=== PATIENT | female | born 1980 | race Caucasian/White ===

== ENCOUNTER 2019-10-13 22:52 | Emergency (ER) | payer MEDICAID, OTHER ==
--- NOTE | 2019-10-14 02:08 | EDM.PDOCBH ---
ED HPI GENERAL MEDICAL PROBLEM - General Chief Complaint: Behavioral/Psych Stated Complaint: MENTAL HEALTH CHECK Time Seen by Provider: 10/14/19 01:36 Source of Information: Reports: Patient History Limitations: Reports: Altered Mental Status - History of Present Illness INITIAL COMMENTS - FREE TEXT/NARRATIVE: Mrs. Enrique is a 39-year-old woman who is brought to the ED by the [place] police. As best we can piece together, the patient was just released from halfway, and wanted to be brought to the ED for a "mental health check". Obtaining a history from the patient is very difficult, because she does not answer any questions directly. When asked how long she was in halfway, she responded "Not a little boy". Her speech patterns are tangential. She often seems fixated on answering the wrong question, for example, the patient indicated that she takes CBD oil. When I inquired when the last time was that she took CBD oil, her answers were repeatedly descriptive of where she took CBD oil, not when. When I asked her if she had a place to live, a home, she responded "My apartment is [address] ". I don't know if that means that her apartment number is 18, or if she believes that her apartment is 18 years old. And even that is presuming that the patient has an apartment; she may be homeless. Ultimately, I have virtually no confidence in any of the information that the patient provided. Since the patient has never been to this ED previously, we have no old charts to compare, therefore all of the information contained within this chart should be viewed with some suspicion. The patient indicated that she has a history of both PTSD and bipolar affective disorder. She stated that she takes lithium 3 times a day, with her most recent dose after she was released from halfway today. She indicates that the lithium was actually prescribed while she was in halfway. She also indicates that she takes CBD oil, with her most recent dose prior to her incarceration, however, at this time, I do not know when that was. At no time did the patient suggest that she was feeling either suicidal or homicidal. Here in the ED, the patient is found to be hemodynamically stable and afebrile. She appears to be in no physical distress. - Related Data Allergies Allergy/AdvReac Type Severity Reaction Status Date / Time Unable to Assess Allergy Unverified 10/13/19 23:11 Home Meds: Home Meds . [Unable to Verify Home Med List] 10/13/19 [History] Past Medical History Musculoskeletal History: Reports: Fracture (left ankle) Psychiatric History: Reports: Addiction, Bipolar, PTSD - Past Surgical History Female Surgical History: Reports: Tubal Ligation Social & Family History - Tobacco Use Smoking Status *Q: Current Some Day Smoker - Caffeine Use Caffeine Use: Reports: Coffee - Alcohol Use Alcohol Use History: No - Recreational Drug Use Recreational Drug Use: Yes Drug Use in Last 12 Months: Yes Recreational Drug Type: Reports: Marijuana/Hashish (CBD oil, regularly), Methamphetamine (last smoked in HS) - Living Situation & Occupation Living situation: Reports: () Occupation: Disabled ED ROS GENERAL - Review of Systems Review Of Systems: Comprehensive ROS is negative, except as noted in HPI. ED EXAM, BEHAVIORAL HEALTH - Physical Exam Exam: See Below Exam Limited By: No Limitations (the patient cooperated with the exam) General Appearance: Alert, WD/WN, No Apparent Distress Eye Exam: Bilateral Eye: EOMI, Normal Inspection Ears: Normal External Exam, Hearing Grossly Normal Nose: Normal Inspection Throat/Mouth: Normal Inspection, Normal Lips, Normal Voice, No Airway Compromise Head: Atraumatic, Normocephalic Neck: Normal Inspection, Full Range of Motion Respiratory/Chest: No Respiratory Distress, Lungs Clear, Normal Breath Sounds, No Accessory Muscle Use Cardiovascular: Normal Peripheral Pulses, Regular Rate, Rhythm, No Edema, No Gallop, No JVD, No Murmur, No Rub GI/Abdominal: Normal Bowel Sounds, Soft, Non-Tender, No Organomegaly, No Distention, No Abnormal Bruit, No Mass (Female) Exam: Deferred Rectal (Female) Exam: Deferred Back Exam: Normal Inspection, Full Range of Motion, NT Extremities: Normal Inspection, Normal Range of Motion, No Pedal Edema, Normal Capillary Refill Neurological: Alert, No Motor/Sensory Deficits EKG INTERPRETATION EKG Date: 10/14/19 Time: 02:16 Rhythm: NSR Rate (Beats/Min): 66 [place]: Normal P-Wave: Present QRS: Other (Early transition) ST-T: Normal QT: Normal Comparison: NA - No Prior EKG COURSE, BEHAVIORAL HEALTH COMP - Course Vital Signs: Last Vital Signs Temp 37.4 C 10/13/19 23:09 Pulse 68 10/13/19 23:09 Resp 20 10/13/19 23:09 BP 128/100 H 10/13/19 23:09 Pulse Ox 96 10/13/19 23:09 Orders, Labs, Meds: Active Orders 24 hr Category Date Time Status EKG Documentation Completion [RC] STAT Care 10/14/19 01:58 Active Laboratory Tests 10/14/19 10/14/19 10/14/19 Range/Units 02:15 02:15 02:15 WBC 8.84 (3.98-10.04) K/mm3 RBC 4.83 (3.98-5.22) M/mm3 Hgb 15.1 D (11.2-15.7) gm/dl Hct 43.8 (34.1-44.9) % MCV 90.7 D (79.4-94.8) fl MCH 31.3 (25.6-32.2) pg MCHC 34.5 (32.2-35.5) g/dl RDW Std Deviation 42.1 (36.4-46.3) fL Plt Count 249 (182-369) K/mm3 MPV 10.2 (9.4-12.3) fl Neut % (Auto) 66.7 (34.0-71.1) % Lymph % (Auto) 24.0 (19.3-51.7) % [place] % (Auto) 6.2 (4.7-12.5) % Eos % (Auto) 2.7 (0.7-5.8) Baso % (Auto) 0.2 (0.1-1.2) % Neut # (Auto) 5.89 (1.56-6.13) K/mm3 Lymph # (Auto) 2.12 (1.18-3.74) K/mm3 [place] # (Auto) 0.55 H (0.24-0.36) K/mm3 Eos # (Auto) 0.24 (0.04-0.36) K/mm3 Baso # (Auto) 0.02 (0.01-0.08) K/mm3 Sodium 142 (136-145) mEq/L Potassium 3.4 L (3.5-5.1) mEq/L Chloride 105 (98-107) mEq/L Carbon Dioxide 25 (21-32) mEq/L Anion Gap 15.4 H (5-15) BUN 13 (7-18) mg/dL Creatinine 0.9 (0.55-1.02) mg/dL Est Cr Clr Drug Dosing TNP Estimated GFR (MDRD) > 60 (>60) mL/min BUN/Creatinine Ratio 14.4 (14-18) Glucose 80 (74-106) mg/dL Calcium 9.6 (8.5-10.1) mg/dL Total Bilirubin 0.6 (0.2-1.0) mg/dL AST 12 L (15-37) U/L ALT 25 (14-59) U/L Alkaline Phosphatase 57 (46-116) U/L Total Protein 7.9 (6.4-8.2) g/dl Albumin 4.4 (3.4-5.0) g/dl Globulin 3.5 gm/dL Albumin/Globulin Ratio 1.3 (1-2) TSH 3rd Generation 5.893 H (0.358-3.74) uIU/mL Urine HCG, Qual (NEGATIVE) Salicylates 2.2 L (2.8-20) mg/dL Urine Opiates Screen (TWOBGP=964) Ur Buprenorphine Scrn (CUTOFF=10) Ur Oxycodone Screen (AYO2CM=086) Urine Methadone Screen (FXGBYX=817) Ur Propoxyphene Screen (QVVWYQ=661) Acetaminophen 0 L (10-30) ug/mL Ur Barbiturates Screen (LYLPHQ=033) Ur Tricyclics Screen (WMBQEL=850) Ur Phencyclidine Scrn (CUTOFF=25) Ur Amphetamine Screen (MXZMBW=702) U Methamphetamines Scrn (XRFIKQ=684) U Benzodiazepines Scrn (DEOYEJ=370) U Cocaine Metab Screen (IRIGRU=930) U Marijuana (THC) Screen (CUTOFF=50) Ethyl Alcohol 0.00 (0.00) gm% 10/14/19 10/14/19 Range/Units 03:00 03:00 WBC (3.98-10.04) K/mm3 RBC (3.98-5.22) M/mm3 Hgb (11.2-15.7) gm/dl Hct (34.1-44.9) % MCV (79.4-94.8) fl MCH (25.6-32.2) pg MCHC (32.2-35.5) g/dl RDW Std Deviation (36.4-46.3) fL Plt Count (182-369) K/mm3 MPV (9.4-12.3) fl Neut % (Auto) (34.0-71.1) % Lymph % (Auto) (19.3-51.7) % [place] % (Auto) (4.7-12.5) % Eos % (Auto) (0.7-5.8) Baso % (Auto) (0.1-1.2) % Neut # (Auto) (1.56-6.13) K/mm3 Lymph # (Auto) (1.18-3.74) K/mm3 [place] # (Auto) (0.24-0.36) K/mm3 Eos # (Auto) (0.04-0.36) K/mm3 Baso # (Auto) (0.01-0.08) K/mm3 Sodium (136-145) mEq/L Potassium (3.5-5.1) mEq/L Chloride (98-107) mEq/L Carbon Dioxide (21-32) mEq/L Anion Gap (5-15) BUN (7-18) mg/dL Creatinine (0.55-1.02) mg/dL Est Cr Clr Drug Dosing Estimated GFR (MDRD) (>60) mL/min BUN/Creatinine Ratio (14-18) Glucose (74-106) mg/dL Calcium (8.5-10.1) mg/dL Total Bilirubin (0.2-1.0) mg/dL AST (15-37) U/L ALT (14-59) U/L Alkaline Phosphatase (46-116) U/L Total Protein (6.4-8.2) g/dl Albumin (3.4-5.0) g/dl Globulin gm/dL Albumin/Globulin Ratio (1-2) TSH 3rd Generation (0.358-3.74) uIU/mL Urine HCG, Qual Negative (NEGATIVE) Salicylates (2.8-20) mg/dL Urine Opiates Screen Negative (XBUCTH=164) Ur Buprenorphine Scrn Negative (CUTOFF=10) Ur Oxycodone Screen Negative (ZHX7DM=517) Urine Methadone Screen Negative (OUQTVY=969) Ur Propoxyphene Screen Negative (HOYFHO=249) Acetaminophen (10-30) ug/mL Ur Barbiturates Screen Negative (RMWAAD=861) Ur Tricyclics Screen Negative (WSDWTJ=556) Ur Phencyclidine Scrn Negative (CUTOFF=25) Ur Amphetamine Screen Negative (WBQHQF=410) U Methamphetamines Scrn Negative (PHUATN=724) U Benzodiazepines Scrn Negative (REAFYT=821) U Cocaine Metab Screen Negative (EOEVII=774) U Marijuana (THC) Screen Negative (CUTOFF=50) Ethyl Alcohol (0.00) gm% Medical Clearance: 10/14/19 02:02 It is unclear if the patient's altered mental status is due to a genuine psychiatric illness, or if she is malingering. While she does not appear to be suffering from either delusions or hallucinations, her speech displays some psychotic features, including alogia/poverty of content and tangentiality. One of the things that is concerning, however, is that she apparently asked to come to the ED for a mental health evaluation after being released from halfway, which is not a request one would ordinarily expect from a psychotic patient, as they would not have insight into their illness. Additionally, the patient said "Hello , jonathan" on several occasions, referring to herself. Is she mimicking Gollum from Lord of the Rings? I have asked the sales department clerk to call the halfway to get more information, including how long she was incarcerated, and whether or not they had any psychiatric issues with the patient during that time. If not, then I would have to suspect that the patient is malingering, likely because she is homeless. In the meantime, I have ordered a standard psychiatric medical clearance panel. I have not ordered a lithium level, because: 1. It is a send-out test, and we would not have the results back until 2018. 2. The patient may be confused, but she is showing no other late signs of lithium toxicity such as coarse tremors, fasciculations, or myoclonic jerks. Further, she is showing no early signs of lithium toxicity, such as vomiting or diarrhea. She is not bradycardic, but an ECG has been ordered to determine her QT duration. 3. Her primary symptoms are those of possible psychosis. Psychotic features are not a side effect of lithium toxicity. 10/14/19 02:10 Our sales department clerk Tobias was able to speak to a staff member at the halfway. They informed her that the patient was arrested on 10/07/2019 for domestic violence towards her and father. She saw a Manufacturing Mechanic this past 10/09/2019, and posted a $500 carvalho today. During her incarceration, she had outbursts and displayed some altered mental status, but the staff was unable to elaborate. Paperwork from the court in the patient's possession indicates that the patient is ordered to comply with a 13/05 sobriety program. The paperwork indicates that failure on the patient's part to participate in the program will result in her being taken into custody immediately. This indicates that the domestic violence that the patient was arrested for likely involved drugs and/or alcohol on the patient's behalf. This information supports the contention that the patient is malingering, as she would not have been able to participate in a court hearing on Saturday in her current condition. 10/14/19 03:23 The patient's CBC is unremarkable. Her CMP is remarkable for potassium slightly depressed at 3.4, and an anion gap slightly elevated at 15.4, with a bicarbonate normal at 25. The remainder of her CMP is unremarkable. Her TSH is elevated at 5.893. Her acetaminophen level is 0. Her salicylate level is within normal limits at 2.2. Her EtOH level is 0. Her urine drug screen is completely negative. Her urine test is negative. Test results discussed with the patient. At this time, she is telling me that a Manufacturing Mechanic had ordered that she undergo a psychiatric evaluation and have an alcohol level obtained, however, the patient provided no paperwork regarding instructions from the court. The patient is amenable, however, to being psychiatrically admitted. Case discussed with Dr. Niki Parmar, Psychiatrist at [facility], at 03 :52. With respect to whether or not the patient is genuinely psychotic or malingering, he felt that we should err on the side of caution, therefore he recommended the patient be admitted. Because the patient does not have a ride, she would need to be transported by the [facility]'s department under a 24-hour hold. Dr. Parmar recommended, however, that if the patient becomes lucid at any time, or if she doesn't like the idea of being transported to [place], that I withdraw the 24-hour hold and discharge her home. Departure - Departure Time of Disposition: 03:55 Disposition: DC/Tfer to Psych Hosp/Unit 65 Condition: Good Clinical Impression: Psychosis, Elevated TSH - Discharge Information *PRESCRIPTION DRUG MONITORING PROGRAM REVIEWED*: Not Applicable *COPY OF PRESCRIPTION DRUG MONITORING REPORT IN PATIENT NELLY: Not Applicable Referrals: PCP,None [Primary Care Provider] - Forms: ED Department Discharge Sepsis Event Note - Evaluation Sepsis Screening Result: No Definite Risk - Focused Exam Vital Signs: Vital Signs Temp Pulse Resp BP Pulse Ox 10/13/19 23:09 37.4 C 68 20 128/100 H 96 Date Exam was Performed: 10/14/19 Time Exam was Performed: 06:32 - My Orders Last 24 Hours: My Active Orders 10/14/19 01:58 EKG Documentation Completion [RC] STAT - Assessment/Plan Last 24 Hours: My Active Orders 10/14/19 01:58 EKG Documentation Completion [RC] STAT
[2019-10-14 03:11] LABS: ACETAMINOPHEN 0 ug/mL (10-30)
== END 2019-10-14 07:32 ==
LOC: JD.ED 22:52
DX: F29 Unspecified psychosis not due to a substance or known physiological condition (principal); R94.6 Abnormal results of thyroid function studies; F17.200 Nicotine dependence, unspecified, uncomplicated
CPT/HCPCS: 36415; 80053; 80306; 81025; 84443; 85025; 93005; 93010; 99283; 99285-25; G0480

== ENCOUNTER 2021-08-25 08:30 | Emergency (ER) | payer MEDICARE, OTHER ==
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
[2021-08-25 09:39] LABS: ACETAMINOPHEN 0 ug/mL (10-30)
== END 2021-08-25 11:51 | disposition other institution (70) ==
LOC: JD.ED 08:30
DX: R45.851 Suicidal ideations (principal); Z88.8 Allergy status to other drugs, medicaments and biological substances; Z88.5 Allergy status to narcotic agent; Z72.0 Tobacco use; Z20.822 Contact with and (suspected) exposure to COVID-19
CPT/HCPCS: 36415; 80053; 80143; 80179; 80306; 80307; 81025; 84443; 85007; 85027; 93005; 99285; U0002; 93010; 99284

== ENCOUNTER 2021-10-30 18:15 | Emergency (ER) | payer MEDICARE, OTHER ==
[2021-10-30] MEDS ORDERED: Sodium Chloride 0.9% 10 ML Syringe FLUSH PRN (18:33)
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
--- NOTE | 2021-10-31 10:18 | CR ---
EXAM: XR CHEST 1 VIEW LOCATION: [facility] DATE/TIME: 10/30/2021 6:48 PM INDICATION: Chest pain COMPARISON: None. IMPRESSION: Negative chest. SIGNED BY: Ollie Cummings MD 10/30/2021 8:11 PM LAURA
== END 2021-10-30 19:57 | disposition home or self-care (01) ==
LOC: JD.ED 18:15
DX: R07.89 Other chest pain (principal); Z88.5 Allergy status to narcotic agent; Z88.8 Allergy status to other drugs, medicaments and biological substances
CPT/HCPCS: 36415; 71045; 71045-26; 80053; 83735; 84484; 84702; 85025; 85379; 85610; 93005; 99285-25

== ENCOUNTER 2023-03-04 16:20 | Emergency (ER) | payer MEDICARE, OTHER ==
[2023-03-04 18:20] LABS: BARBITURATE SCREEN,URINE NEGATIVE (CUTOFF=200); BENZODIAZEPINES SCREEN,URINE NEGATIVE (CUTOFF=150); BUPRENORPHINE SCREEN,URINE NEGATIVE (CUTOFF=10); METHADONE SCREEN, URINE NEGATIVE (CUTOFF=200); METHAMPHETAMINES SCREEN, URINE NEGATIVE (CUTOFF=500); OXYCODONE SCREEN,URINE NEGATIVE (CUT0FF=100); PROPOXYPHENE SCREEN,URINE NEGATIVE (CUTOFF=300); THC SCREEN,URINE 20 NG/ML NEGATIVE (CUTOFF=50)
[2023-03-04 18:34] LABS: AMPHETAMINES SCREEN, URINE NEGATIVE (CUTOFF=500)
== END 2023-03-04 19:15 | disposition other institution (70) ==
LOC: JD.ED 16:20
DX: Z02.89 Encounter for other administrative examinations (principal); Z88.5 Allergy status to narcotic agent; Z88.8 Allergy status to other drugs, medicaments and biological substances; Z91.048 Other nonmedicinal substance allergy status; F17.210 Nicotine dependence, cigarettes, uncomplicated; Z86.59 Personal history of other mental and behavioral disorders
CPT/HCPCS: 80306; 99283

== ENCOUNTER 2023-06-11 11:29 | Emergency (ER) | payer MEDICARE, OTHER ==
[2023-06-11] MEDS ORDERED: Lidocaine 1% 10 ML MDV INJECT ONE (11:51)
[2023-06-11] MEDS ORDERED: Diphtheria,Pertussis(Acell),Tetanus Vaccine 0.5 ML Syringe IM ONE (11:55)
[2023-06-11] MEDS ORDERED: cefTRIAXone 1 GM, Lidocaine 1% 2.1 ML IM ONE ×2 (12:20)
[2023-06-11] MEDS ORDERED: Cephalexin 500 MG Cap PO ONE (12:20)
== END 2023-06-11 13:05 | disposition home or self-care (01) ==
LOC: JD.ED 11:29
DX: S60.552A Superficial foreign body of left hand, initial encounter (principal); F17.210 Nicotine dependence, cigarettes, uncomplicated; J45.909 Unspecified asthma, uncomplicated; Z88.8 Allergy status to other drugs, medicaments and biological substances; Z91.048 Other nonmedicinal substance allergy status; Z91.09 Other allergy status, other than to drugs and biological substances; Z23 Encounter for immunization; W45.8XXA Other foreign body or object entering through skin, initial encounter
CPT/HCPCS: 10120; 73130; 90471; 90715; 96372; 99283; A9270; J0696; J3490

== ENCOUNTER 2025-04-04 21:32 | Emergency (ER) | payer MEDICARE, MEDICAID | END 2025-04-04 22:00 | LOC: JD.ED 21:32 | DX: Z02.89 Encounter for other administrative examinations (principal); Z88.8 Allergy status to other drugs, medicaments and biological substances | CPT/HCPCS: 99282; 99283 ==

== ENCOUNTER 2025-08-07 12:42 | Emergency (ER) | payer MEDICARE, MEDICAID | END 2025-08-07 14:45 | disposition home or self-care (01) | LOC: JD.ED 12:42 | DX: F15.10 Other stimulant abuse, uncomplicated (principal); T50.905A Adverse effect of unspecified drugs, medicaments and biological substances, initial encounter; F17.200 Nicotine dependence, unspecified, uncomplicated; Z88.8 Allergy status to other drugs, medicaments and biological substances; Z79.899 Other long term (current) drug therapy | CPT/HCPCS: 99283; Q0163 ==

== ENCOUNTER 2025-09-04 19:25 | Emergency (ER) | payer MEDICARE, MEDICAID ==
[2025-09-04 20:17] LABS: BASOPHILS ABSOLUTE AUTO 0.0 K/mm3 (0.0-0.2); BASOPHILS PERCENT AUTO 0.4 % (0.0-1.0); EOSINOPHILS ABSOLUTE AUTO 0.1 K/mm3 (0.0-0.4); EOSINOPHILS PERCENT AUTO 0.8 % (0.0-6.0); IMMATURE GRAN ABSOLUTE AUTO 0.02 K/mm3 (0.00-0.05); IMMATURE GRAN PERCENT AUTO 0.3 % (0.0-0.4); LYMPHOCYTES ABSOLUTE AUTO 1.9 K/mm3 (1.0-4.8); LYMPHOCYTES PERCENT AUTO 23.7 % (24.0-44.0); MEAN PLATELET VOLUME 9.3 fl (9.4-12.3); MONOCYTES ABSOLUTE AUTO 0.5 K/mm3 (0.0-0.8); MONOCYTES PERCENT AUTO 6.2 % (0.0-8.0); NEUTROPHILS ABSOLUTE AUTO 5.4 K/mm3 (1.8-7.7); NEUTROPHILS PERCENT AUTO 68.6 % (41.0-71.0); NRBC ABSOLUTE 0.00 (0.00-0.02); NRBC PERCENT 0.0 % (0.0-0.2); PLATELET COUNT,PLT 287 K/mm3 (150-400); RED BLOOD CELL COUNT 4.48 M/mm3 (4.10-5.30); WHITE BLOOD CELL COUNT,WBC 7.90 K/mm3 (3.9-11.3)
[2025-09-04 20:35] LABS: INR 1.06
[2025-09-04 20:39] LABS: A/G RATIO 1.2 (1-2); ALANINE AMINOTRANSFERASE,ALT 19.0 U/L (14-59); ASPARTATE AMNIOTRANSFERASE,AST 17.0 U/L (15-37); BILIRUBIN TOTAL 0.4 mg/dL (0.2-1.0); BLOOD UREA NITROGEN,BUN 12.0 mg/dL (7-18); CARBON DIOXIDE,CO2 23.0 mEq/L (21-32); CHLORIDE,CL 104.0 mEq/L (98-107); CREATINE KINASE,CK 129.0 U/L (26-192); CREATININE 1.0 mg/dL (0.55-1.02); EST CRCL DRUG DOSING (CG) 54.74 mL/min; ESTIMATED GFR 72.0 mL/min (>60); GLUCOSE RANDOM 83.0 mg/dL (70-99); POTASSIUM,K 3.7 mEq/L (3.5-5.1); PROTEIN TOTAL,TP 7.6 g/dl (6.4-8.2); SODIUM,NA 138.0 mEq/L (136-145)
[2025-09-04 20:40] LABS: ETHANOL BLOOD MEDICAL 0.0 gm% (0.00)
== END 2025-09-05 03:15 | disposition home or self-care (01) ==
LOC: JD.ED 19:25
DX: F31.12 Bipolar disorder, current episode manic without psychotic features, moderate (principal); R45.6 Violent behavior; F17.200 Nicotine dependence, unspecified, uncomplicated; Z79.899 Other long term (current) drug therapy; Z88.8 Allergy status to other drugs, medicaments and biological substances; Z91.048 Other nonmedicinal substance allergy status
CPT/HCPCS: 36415; 80053; 80143; 80179; 80307; 82550; 83690; 83735; 84703; 85025; 85610; 99284; A9270; 99285